=== PATIENT | male | born 1960 | race African-American/Black ===

== ENCOUNTER 2020-05-27 15:18 | Emergency (ER) | payer OTHER ==
[~2020-05-27] VITALS: Ht 180.3 cm; Wt 103.0 kg
[2020-05-27 15:37] VITALS: BP 127/88
[2020-05-27] MEDS ORDERED: LIDOCAINE 1% HCL (LOCAL ANESTH.) INJ 20ML MDV IJ ONE (17:00)
[2020-05-27] MEDS ORDERED: ACETAMINOPHEN 500 MG TAB PO ONE (17:30)
[2020-05-27] MEDS ORDERED: cefTRIAXone SOD 1,000 MG VL IM ONE (17:30)
== END 2020-05-27 18:10 | disposition home or self-care (01) ==
LOC: ER 15:18
DX: L02.511 Cutaneous abscess of right hand (principal); S61.011D Laceration without foreign body of right thumb without damage to nail, subsequent encounter; E11.9 Type 2 diabetes mellitus without complications; F17.210 Nicotine dependence, cigarettes, uncomplicated; X58.XXXD Exposure to other specified factors, subsequent encounter
CPT/HCPCS: 26010; 73130; 96372; 99283; J0696; J2001; 10060

== ENCOUNTER 2023-05-23 17:25 | Emergency (ER) | payer MEDICAID, OTHER ==
[~2023-05-23] VITALS: Ht 177.8 cm; Wt 104.5 kg
[~2023-05-23 17:25] MED LIST: ACYC400T16 PO; DOXY-447 PO
[2023-05-23 17:53] VITALS: BP 115/78; TEMP 97
[2023-05-23 19:16] LABS: Urine Bacteria NONE SEEN /hpf (None Seen); Urine Blood Negative /uL (Negative); Urine Clarity Clear (Clear); Urine Color Yellow (Yellow); Urine Hyaline Cast MANY /lpf (0 - 2); Urine Mucus FEW (None Seen); Urine Protein, UAD TRACE (Negative); Urine Specific Gravity 1.024 (1.001-1.035); Urine Urobilinogen Normal (Negative); Urine WBC <1 /hpf (0 - 3); Urine pH 5.5 (5.0-8.0)
[2023-05-23] MEDS ORDERED: TRAM-711 PO (19:34)
[2023-05-23] MEDS ORDERED: GABA-1308 PO (19:34)
[2023-05-23 19:55] VITALS: PULSE 110; RESP 18; O2SAT 97
== END 2023-05-23 19:55 | disposition home or self-care (01) ==
LOC: ER 17:25
DX: B02.29 Other postherpetic nervous system involvement (principal); E11.9 Type 2 diabetes mellitus without complications
CPT/HCPCS: 81001

== ENCOUNTER 2024-08-30 19:02 | Emergency (ER) | payer OTHER, MEDICAID ==
[~2024-08-30] VITALS: Ht 172.7 cm; Wt 92.1 kg
[~2024-08-30 19:02] MED LIST changes: -DOXY-447 PO; +DOXY1CAP58 PO; +GABA-1308 PO; +TRAM-711 PO
[2024-08-30 19:52] VITALS: BP 113/67; PULSE 113; RESP 16; O2SAT 98
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
--- NOTE | 2024-08-30 20:41 | DVH ---
CLINICAL INDICATION: crush injury TECHNIQUE: 6 views of the right foot. Comparison: None FINDINGS/IMPRESSION: There is no evidence of acute fracture or dislocation. Moderate degenerative arthrosis of the 1st metatarsophalangeal joint space.
[2024-08-30] MEDS ORDERED: IBUP-1455 PO (21:14)
== END 2024-08-30 22:46 | disposition home or self-care (01) ==
LOC: ER 19:02
DX: S90.31XA Contusion of right foot, initial encounter (principal); E11.9 Type 2 diabetes mellitus without complications; F17.210 Nicotine dependence, cigarettes, uncomplicated; Z79.899 Other long term (current) drug therapy; W18.39XA Other fall on same level, initial encounter; Y93.89 Activity, other specified; Y92.89 Other specified places as the place of occurrence of the external cause; Y99.8 Other external cause status
CPT/HCPCS: 73630